=== PATIENT | male | born 1970 | race Hispanic/Latino ===

== ENCOUNTER 2018-01-04 04:01 | Emergency (ER) | payer BC ==
[2018-01-04 04:05] VITALS: BP 116/71; PULSE 127; RESP 20; TEMP 97.6; O2SAT 94
[2018-01-04] MEDS ORDERED: Hydrogen Peroxide 3% Soln (480ml) TP ONE (05:02)
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
--- NOTE | 2018-01-04 10:43 | CT ---
PROCEDURE: CT HEAD WITHOUT CONTRAST. HISTORY: s/p fall COMPARISON: None available. TECHNIQUE: Axial computed tomography images were obtained through the head/brain without intravenous contrast. Radiation dose: Total exam DLP = 1236.9 mGy-cm. This CT exam was performed using one or more of the following dose reduction techniques: Automated exposure control, adjustment of the mA and/or kV according to patient size, and/or use of iterative reconstruction technique. FINDINGS: HEMORRHAGE: No intracranial hemorrhage. BRAIN: No mass effect or edema. No atrophy or chronic microvascular ischemic changes. VENTRICLES: Unremarkable. No hydrocephalus. CALVARIUM: Unremarkable. PARANASAL SINUSES: Unremarkable as visualized. No significant inflammatory changes. MASTOID AIR CELLS: Unremarkable as visualized. No inflammatory changes. OTHER FINDINGS: Left occipital scalp hematoma. IMPRESSION: No acute intracranial pathology. Left occipital scalp hematoma.
== END 2018-01-04 05:45 | disposition home or self-care (01) ==
LOC: H.ER 04:01
DX: F10.129 Alcohol abuse with intoxication, unspecified (principal); S01.01XA Laceration without foreign body of scalp, initial encounter; W19.XXXA Unspecified fall, initial encounter; Y92.89 Other specified places as the place of occurrence of the external cause